=== PATIENT | female | born 1970 | race Hispanic/Latino ===

== ENCOUNTER 2017-04-22 13:24 | Emergency (ER) | payer BC ==
[2017-04-22] MEDS ORDERED: Sodium Chloride 0.9% 1,000 ML IV STA (15:22)
--- NOTE | 2017-04-22 15:38 | ED PDOC ---
HPI: Headache Time Seen by Provider: 04/22/17 14:27 Chief Complaint (Nursing): Dizziness/Lightheaded Chief Complaint (Provider): headache History Per: Patient History/Exam Limitations: no limitations Onset/Duration Of Symptoms: Days (x 1) Additional Complaint(s): Annie Alanis is a 46 year old female, with no previous medical history, who presents to the ED for the evaluation of a headache and neck pain which gradually started yesterday on the left side of her neck and moved to her head. Patient reports going to her chiropractor for an adjustment which provided relief. She reports today at 11 am (4 hours ago) the neck and headache returned along with nausea, blurry vision and light sensitivity to only the left eye. Patient states symptoms of blurred vision and photophobia lasted only an hour and resolved spontaneously. She denies any vomiting, visual changes, fever, trauma, numbness or tingling. PMD: none provided Past Medical History Reviewed: Historical Data, Nursing Documentation, Vital Signs Vital Signs: Last Vital Signs Temp 98.4 F 04/22/17 13:25 Pulse 62 04/22/17 13:25 Resp 16 04/22/17 13:25 BP 145/88 04/22/17 13:25 Pulse Ox 100 04/22/17 13:25 - Medical History PMH: No Chronic Diseases - Family History Family History: States: No Known Family Hx - Home Medications Home Medications: Ambulatory Orders Medication Instructions Recorded Metoclopramide [Reglan] 10 mg PO Q8 PRN #15 tab 04/22/17 Naproxen [Naprosyn] 500 mg PO BID PRN #30 tab 04/22/17 - Allergies Allergies/Adverse Reactions: Allergies Allergy/AdvReac Type Severity Reaction Status Date / Time No Known Allergies Allergy Verified 04/22/17 13:25 Review of Systems ROS Statement: Except As Marked, All Systems Reviewed And Found Negative Constitutional: Negative for: Fever, Chills Eyes: Negative for: Vision Change Gastrointestinal: Positive for: Nausea. Negative for: Vomiting Musculoskeletal: Positive for: Neck Pain Neurological: Positive for: Headache. Negative for: Numbness, Other (tingling ) Physical Exam - Reviewed Nursing Documentation Reviewed: Yes Vital Signs Reviewed: Yes - Physical Exam Appears: Positive for: Well, Non-toxic, No Acute Distress Head Exam: Positive for: ATRAUMATIC, NORMAL INSPECTION, NORMOCEPHALIC Skin: Positive for: Normal Color, Warm, Dry. Negative for: Rash Eye Exam: Positive for: Normal appearance, EOMI, PERRL, Other (photo sensitivity in left eye ) ENT: Positive for: Normal ENT Inspection Neck: Positive for: Normal, Painless ROM, Supple Cardiovascular/Chest: Positive for: Regular Rate, Rhythm Respiratory: Positive for: CNT, Normal Breath Sounds Gastrointestinal/Abdominal: Positive for: Normal Exam, Bowel Sounds, Soft. Negative for: Tenderness Back: Positive for: Normal Inspection. Negative for: Vertebral Tenderness Extremity: Positive for: Normal ROM Neurologic/Psych: Positive for: Alert, Oriented, Gait (steady, unassisted). Negative for: Motor/Sensory Deficits, Aphasia, Facial Droop - Laboratory Results Result Diagrams: 04/22/17 15:52 04/22/17 15:52 - ECG O2 Sat by Pulse Oximetry: 100 (RA) Pulse Ox Interpretation: Normal - Progress ED Course And Treament: CT head w/o contrast: Normal CT of the Head as per radiology report. CTA head and neck: Unremarkable CT Angiography of the Brain as per radiology report. 1730 On re-evaluation, pt. reports moderate relief of headache. Informed of results. Instructed to f/u with neuro as needed. Medical Decision Making Medical Decision Making: Initial Impression: r/o disection Initial Plan: * CT head anc neck * labs * urine * PTT * PT * reglan 10 mg IV * IV NS 1,000 ml at 1,000 ml/hr * reevaluation Scribe Attestation: Documented by Belkis Taylor, acting as a scribe for Ramesh Frias PA-C Provider Scribe Attestation: All medical record entries made by the Scribe were at my direction and personally dictated by me. I have reviewed the chart and agree that the record accurately reflects my personal performance of the history, physical exam, medical decision making, and the department course for this patient. I have also personally directed, reviewed, and agree with the discharge instructions and disposition. Disposition - Clinical Impression Clinical Impression: Headache - Patient ED Disposition Is Patient to be Admitted: No - Disposition Referrals: Leon Westbrook [Outside] Disposition: Routine/Home Disposition Time: 17:36 Condition: STABLE Prescriptions: Metoclopramide [Reglan] 10 mg PO Q8 PRN #15 tab PRN Reason: headache or nausea Naproxen [Naprosyn] 500 mg PO BID PRN #30 tab PRN Reason: Pain Instructions: Acute Headache (ED) Forms: Leon Faustin (Faroese), [facility] ED School/Work Excuse
[2017-04-22 16:01] LABS: BASO # 0.1 K/uL (0.0-0.2); BASO % 1.4 % (0.0-2.0); EOS # 0.2 K/uL (0.0-0.7); EOS % 2.3 % (0.0-4.0); HEMATOCRIT 41.2 % (34.0-47.0); LYMPH # 2.2 K/uL (1.0-4.3); LYMPH % 24.1 % (20.0-40.0); MEAN CELL VOLUME 90.5 fl (81.0-99.0); MEAN CORPUSCULAR HEMOGLOBIN 30.8 pg (27.0-31.0); MEAN PLATELET VOLUME 7.2 fl (7.2-11.7); MONO # 0.6 K/uL (0.0-0.8); MONO % 6.5 % (0.0-10.0); NEUT # 6.1 K/uL (1.8-7.0); NEUT % 65.7 % (50.0-75.0); RED CELL DISTRIBUTION WIDTH 12.6 % (11.5-14.5); WHITE BLOOD COUNT 9.3 K/uL (4.8-10.8)
[2017-04-22 16:09] LABS: ALB/GLOB RATIO 1.5 (1.0-2.1); ALKALINE PHOSPHATASE 68 U/L (38-126); ALT/SGPT 25 U/L (9-52); AST/SGOT 21 U/L (14-36); BILIRUBIN,TOTAL 0.7 mg/dl (0.2-1.3); BLOOD UREA NITROGEN 15 mg/dl (7-17); CALCIUM 9.6 mg/dL (8.4-10.2); CARBON DIOXIDE 21 mmol/L (22-30); CHLORIDE 104 mmol/L (98-107); GFR AFRICAN-AMERICAN > 60; GLUCOSE,RANDOM 86 mg/dL (65-105); POTASSIUM 4.1 MMOL/L (3.6-5.0); SODIUM 140 mmol/l (132-148); TOTAL PROTEIN 7.6 G/DL (6.3-8.2)
[2017-04-22 16:13] VITALS: RESP 18
[2017-04-22 16:29] LABS: PARTIAL THROMBOPLASTIN TIME 27.1 Seconds (25.6-37.1)
[2017-04-22] MEDS ORDERED: Iodixanol 320 MG/ML 100 ML BOTTLE IV ONE (16:34)
[2017-04-22] MEDS ORDERED: Sodium Chloride 0.9% 50 ML IV ONE (16:35)
--- NOTE | 2017-04-22 16:42 | CT ---
PROCEDURE: CT HEAD WITHOUT CONTRAST. HISTORY: L headache, s/p chiropractor adjustment COMPARISON: None available. TECHNIQUE: Axial computed tomography images were obtained through the head/brain without intravenous contrast. Radiation dose: Total exam DLP = 874.36 mGy-cm. This CT exam was performed using one or more of the following dose reduction techniques: Automated exposure control, adjustment of the mA and/or kV according to patient size, and/or use of iterative reconstruction technique. FINDINGS: HEMORRHAGE: No intracranial hemorrhage. BRAIN: Normal krueger-white matter differentiation and density are appreciated throughout the cerebrum cerebellum and brainstem. There is no mass effect. There is no suspicious extra-axial fluid collection in the midline brain and appears diffusely unremarkable. VENTRICLES: Unremarkable. No hydrocephalus. CALVARIUM: Unremarkable. PARANASAL SINUSES: Unremarkable as visualized. No significant inflammatory changes. MASTOID AIR CELLS: Unremarkable as visualized. No inflammatory changes. OTHER FINDINGS: None. IMPRESSION: Normal CT of the Head. MRI or CT are available follow-up if clinically warranted.
--- NOTE | 2017-04-22 17:30 | CT ---
PROCEDURE: CT Angiography of the Brain. HISTORY: L sided headache, s/p chiropractic adjustment COMPARISON: None available. TECHNIQUE: CT angiography of the intracranial arteries was performed. Coronal and sagittal maximum intensity projection reformated images were generated. This CT exam was performed using one or more of the following dose reduction techniques: Automated exposure control, adjustment of the mA and/or kV according to patient size, and/or use of iterative reconstruction technique. FINDINGS: Common Carotid Artery: Normal. Carotid Bifurcation: Normal. Internal Carotid Artery:Normal. External Carotid Artery (proximal branches): Normal. LEFT CAROTID ARTERIES: Common Carotid Artery: Normal. Carotid Bifurcation: Normal. Internal Carotid Artery:Normal. External Carotid Artery (proximal branches): Normal. VERTEBRAL ARTERIES: Right Vertebral Artery: Normal. Left Vertebral Artery: Normal. INTERNAL CEREBRAL ARTERIES: Unremarkable. The skull base, petrous, cavernous and supraclinoid segments are bilaterally widely patient. ANTERIOR CEREBRAL ARTERIES: Unremarkable. A1 and A2 segments are widely patent. Smaller distal branches unremarkable, as visualized. MIDDLE CEREBRAL ARTERIES: Unremarkable. M1 and M2 segments are widely patent. Perisylvian branches grossly symmetric. POSTERIOR CIRCULATION: Basilar Artery: Unremarkable. Distal Vertebral Arteries: Unremarkable. Posterior Cerebral Arteries: Unremarkable. Posterior Inferior Cerebellar Arteries: Unremarkable. ANEURYSM/ VASCULAR MALFORMATIONS: None. OTHER FINDINGS: None. IMPRESSION: Unremarkable CT Angiography of the Brain.
[2017-04-22 18:04] VITALS: BP 143/72; PULSE 73; TEMP 98; O2SAT 99
== END 2017-04-22 18:18 | disposition home or self-care (01) ==
LOC: H.ER 13:24
DX: R51 Headache (principal)
CPT/HCPCS: 70450; 70496; 70498; 80053; 81025; 85025; 85610; 85730; 96374; 99283; J2765; J7040; Q9967